=== PATIENT | female | born 1945 | race Caucasian/White ===

== ENCOUNTER → 2023-09-21 06:29 | Day surgery (SDC) | payer MEDICARE, OTHER, SELFPAY | LOC: GI 06:29 | PROVIDERS: ATTENDING PHYSICIAN Specialist | DX: C18.1 Malignant neoplasm of appendix (principal); D12.3 Benign neoplasm of transverse colon; D12.8 Benign neoplasm of rectum; Z08 Encounter for follow-up examination after completed treatment for malignant neoplasm; Z85.09 Personal history of malignant neoplasm of other digestive organs | CPT/HCPCS: 45385; 45380; 88305 ==

== ENCOUNTER → 2024-01-03 12:19 | Outpatient (REF) | payer MEDICARE, OTHER, SELFPAY | LOC: WDC 12:19 | PROVIDERS: ATTENDING PHYSICIAN Obstetrics & Gynecology Gynecology; FAMILY PHYSICIAN Physician Assistant | DX: Z12.31 Encounter for screening mammogram for malignant neoplasm of breast (principal) | CPT/HCPCS: 77063; 77067 ==

== ENCOUNTER → 2024-04-29 16:57 | Outpatient (REF) | payer MEDICARE, OTHER, SELFPAY | LOC: PAVMRI 16:57 | PROVIDERS: ATTENDING PHYSICIAN Physician Assistant Surgical; FAMILY PHYSICIAN Physician Assistant | DX: M79.671 Pain in right foot (principal) | CPT/HCPCS: 73718 ==

== ENCOUNTER → 2024-05-29 12:10 | Outpatient (REF) | payer MEDICARE, OTHER, SELFPAY | LOC: RCS 12:10 | PROVIDERS: ATTENDING PHYSICIAN Internal Medicine Cardiovascular Disease; FAMILY PHYSICIAN Physician Assistant | DX: I10 Essential (primary) hypertension (principal); I42.2 Other hypertrophic cardiomyopathy | CPT/HCPCS: 93306 ==

== ENCOUNTER → 2024-06-19 07:02 | Outpatient (REF) | payer MEDICARE, OTHER, SELFPAY ==
[2024-06-19 08:08] LABS: Blood Urea Nitrogen 21 mg/dl (7-17)
[2024-06-19 16:11] LABS: CEA 2.63 ng/ml
[2024-06-19 19:04] LABS: CA 125 8.3 U/mL (0-35)
[2024-06-20 10:18] LABS: CA 19-9 6 U/mL (<=35)
== END ==
LOC: REG 07:02
PROVIDERS: ATTENDING PHYSICIAN Surgery; FAMILY PHYSICIAN Physician Assistant
DX: D37.3 Neoplasm of uncertain behavior of appendix (principal); Z01.812 Encounter for preprocedural laboratory examination; R97.8 Other abnormal tumor markers
CPT/HCPCS: 36415; 82378; 82565; 84520; 86301; 86304

== ENCOUNTER → 2024-06-23 10:20 | Outpatient (REF) | payer MEDICARE, OTHER, SELFPAY ==
[2024-06-23 11:05] LABS: % Basophils 0.3 % (0-2); % Immature Granulocytes 0.1 % (0-0.5); % Lymphocytes 9.4 % (20.5-51.1); % Neutrophils 77.2 % (42.2-75.2); Absolute Lymphocytes 0.6 10^3/uL (1.2-3.4); Absolute Monocytes 0.9 10^3/uL (0.1-0.6); Absolute Neutrophils 5.3 10^3/uL (1.4-6.5); Hematocrit 42.9 % (37.0-47.0); Hemoglobin 13.8 g/dL (12.0-16.0); Mean Corp Hgb Conc. 32.2 g/dL (33.0-37.0); Mean Corpuscular Hgb 28.3 pg (27.0-31.0); Mean Corpuscular Volume 87.9 fL (81.0-99.0); Mean Platelet Volume 11.3 fL (7.4-10.4); Nucleated Red Blood Cells % 0 %; Platelet Count 161 10^3/uL (130-400); Red Blood Cell Count 4.88 10^6/uL (4.20-5.40); Red Cell Dist. Width 13.6 % (11.5-14.5); White Blood Cell Count 6.8 10^3/uL (4.8-10.8)
[2024-06-23 11:58] LABS: ALT (SGPT) 51 U/L (0-35); AST (SGOT) 59 U/L (14-36); Albumin 4.4 g/dl (3.5-5.0); Alkaline Phosphatase 95 U/L (38-126); Blood Urea Nitrogen 14 mg/dl (7-17); Calcium 9.3 mg/dl (8.4-10.2); Carbon Dioxide 32 mmol/L (22-30); Chloride 95 mmol/L (98-107); Glucose 96 mg/dl (70-99); HDL Cholesterol 77 mg/dl; LDL Cholesterol, Calculated 92 mg/dl; Potassium 4.9 mmol/L (3.5-5.1); Sodium 133 mmol/L (135-145); Total Bilirubin 0.6 mg/dl (0.2-1.3); Total Cholesterol 179 mg/dl (50-199); Total Protein 6.9 g/dl (6.3-8.2); Triglyceride 51 mg/dl (10-149); Very Low Density Lipoprotein 10 mg/dl (0-30); eGFR 58.02
[2024-06-23 12:14] LABS: Free T4 0.78 ng/dl (0.78-2.19)
== END ==
LOC: REG 10:20
PROVIDERS: ATTENDING PHYSICIAN Physician Assistant
DX: I10 Essential (primary) hypertension (principal); E03.9 Hypothyroidism, unspecified; E11.9 Type 2 diabetes mellitus without complications; E66.9 Obesity, unspecified; J45.20 Mild intermittent asthma, uncomplicated; G47.33 Obstructive sleep apnea (adult) (pediatric); Z13.220 Encounter for screening for lipoid disorders
CPT/HCPCS: 36415; 80053; 80061; 83036; 84439; 84443; 85025

== ENCOUNTER → 2024-07-10 12:11 | Outpatient (REF) | payer MEDICARE, OTHER, SELFPAY | LOC: RAD 12:11 | PROVIDERS: ATTENDING PHYSICIAN Surgery; FAMILY PHYSICIAN Physician Assistant | DX: D37.3 Neoplasm of uncertain behavior of appendix (principal) | CPT/HCPCS: 74177; Q9967 ==

== ENCOUNTER 2024-07-14 06:21 | Day surgery (SDC) | payer MEDICARE, OTHER, SELFPAY ==
[2024-07-14 07:22] VITALS: BMI 29.7
[2024-07-14 07:28] VITALS: BMI 29.7
--- NOTE | 2024-07-14 07:30 | PTCARENOTE ---
Patient states that she was diagnosed with sleep apnea with a home study. Patient states she does not have sleep apnea though and had a sleep apnea device and it was stopped against medical advice. No sleep apnea reported per patient.
[2024-07-14 07:46] VITALS: BP 162/84
[2024-07-14] MEDS: TYLENOL 1000 MG PO (07:51)
[2024-07-14] MEDS: CELEBREX 200 MG PO (07:51)
[2024-07-14] MEDS: NORMOSOL-R/PLASMALYTE-A 1000 IV (08:08)
[2024-07-14 10:20] VITALS: BP 117/78
[2024-07-14 10:30] VITALS: BP 145/86
[2024-07-14 10:45] VITALS: BP 150/81
[2024-07-14 11:00] VITALS: BP 145/81
== END 2024-07-14 11:18 | disposition home or self-care (01) ==
LOC: SDS 06:21
PROVIDERS: ATTENDING PHYSICIAN Student in an Organized Health Care Education/Training Program; FAMILY PHYSICIAN Physician Assistant
DX: M20.21 Hallux rigidus, right foot (principal)
CPT/HCPCS: 28750; C1713; C1776

== ENCOUNTER → 2024-08-26 09:06 | Outpatient (REF) | payer MEDICARE, OTHER, SELFPAY ==
[2024-08-26 13:41] LABS: ALT (SGPT) 46 U/L (0-35); AST (SGOT) 38 U/L (14-36); Albumin 4.3 g/dl (3.5-5.0); Alkaline Phosphatase 101 U/L (38-126); Direct Bilirubin 0.1 mg/dl (0.0-0.4); Iron 74 ug/dl (37-170); Total Bilirubin 0.5 mg/dl (0.2-1.3); Total Protein 6.7 g/dl (6.3-8.2)
[2024-08-26 13:50] LABS: Percent Saturation 20 % (20-50); Total Iron Binding Capacity 360 ug/dl (265-497)
[2024-08-26 14:13] LABS: Ferritin 89.8 ng/ml (11.1-264.0)
[2024-08-28 19:14] LABS: ANA, IgG Reflex to HEp-2 None Detected (None Detected)
[2024-08-28 21:07] LABS: F-Actin Antibody IgG 10 Units (0-19); Mitochondrial M2 Ab, IgG 2.3 Units (0.0-24.9)
[2024-08-28 21:24] LABS: Ceruloplasmin 28 mg/dL (16-45)
== END ==
LOC: HWRAD 09:06
PROVIDERS: ATTENDING PHYSICIAN Specialist; FAMILY PHYSICIAN Physician Assistant
DX: R79.89 Other specified abnormal findings of blood chemistry (principal)
CPT/HCPCS: 36415; 76700; 80076; 82390; 82728; 83540; 83550; 86015; 86038; 86381

== ENCOUNTER → 2024-09-24 08:27 | Outpatient (REF) | payer MEDICARE, OTHER, SELFPAY | LOC: HWRCS 08:27 | PROVIDERS: ATTENDING PHYSICIAN Physician Assistant Medical; FAMILY PHYSICIAN Physician Assistant | DX: I44.7 Left bundle-branch block, unspecified (principal); R06.09 Other forms of dyspnea; R42 Dizziness and giddiness | CPT/HCPCS: 78452; 93017; A9500; J2785 ==

== ENCOUNTER → 2025-01-13 12:38 | Outpatient (REF) | payer MEDICARE, OTHER, SELFPAY | LOC: RSP 12:38 | PROVIDERS: ATTENDING PHYSICIAN Physician Assistant | DX: R06.09 Other forms of dyspnea (principal) | CPT/HCPCS: 94060 ==

== ENCOUNTER → 2025-02-11 14:19 | Outpatient (REF) | payer MEDICARE, OTHER, SELFPAY ==
[2025-02-11 16:13] LABS: Hematocrit 44.1 % (37.0-47.0); Hemoglobin 13.9 g/dL (12.0-16.0); Mean Corp Hgb Conc. 31.5 g/dL (33.0-37.0); Mean Corpuscular Volume 87.8 fL (81.0-99.0); Nucleated Red Blood Cells % 0 %; Platelet Count 199 10^3/uL (130-400); Red Cell Dist. Width 13.7 % (11.5-14.5)
== END ==
LOC: REG 14:19
PROVIDERS: ATTENDING PHYSICIAN Nurse Practitioner Family; FAMILY PHYSICIAN Physician Assistant
DX: R06.02 Shortness of breath (principal)
CPT/HCPCS: 36415; 85025

== ENCOUNTER → 2025-02-17 07:14 | Outpatient (REF) | payer MEDICARE, OTHER, SELFPAY | LOC: RCS 07:14 | PROVIDERS: ATTENDING PHYSICIAN Internal Medicine Cardiovascular Disease; FAMILY PHYSICIAN Physician Assistant | DX: I10 Essential (primary) hypertension (principal); I36.1 Nonrheumatic tricuspid (valve) insufficiency; I44.7 Left bundle-branch block, unspecified; I34.2 Nonrheumatic mitral (valve) stenosis | CPT/HCPCS: 93306 ==

== ENCOUNTER → 2025-04-02 12:22 | Outpatient (REF) | payer MEDICARE, OTHER, SELFPAY | LOC: RAD 12:22 | PROVIDERS: ATTENDING PHYSICIAN Nurse Practitioner Family; FAMILY PHYSICIAN Physician Assistant | DX: R60.0 Localized edema (principal) | CPT/HCPCS: 71046; 93971 ==

== ENCOUNTER → 2025-04-22 08:39 | Outpatient (REF) | payer MEDICARE, OTHER, SELFPAY ==
[2025-04-22 09:44] LABS: Hematocrit 45.3 % (37.0-47.0); Hemoglobin 14.1 g/dL (12.0-16.0); Mean Corp Hgb Conc. 31.1 g/dL (33.0-37.0); Mean Corpuscular Volume 89.5 fL (81.0-99.0); Nucleated Red Blood Cells % 0 %; Platelet Count 169 10^3/uL (130-400); Red Cell Dist. Width 13.6 % (11.5-14.5)
[2025-04-22 11:38] LABS: ALT (SGPT) 124 U/L (0-35); AST (SGOT) 100 U/L (14-36); Albumin 4.4 g/dl (3.5-5.0); Alkaline Phosphatase 131 U/L (38-126); Blood Urea Nitrogen 24 mg/dl (7-17); Calcium 9.5 mg/dl (8.4-10.2); Carbon Dioxide 25 mmol/L (22-30); Chloride 105 mmol/L (98-107); Glucose 108 mg/dl (70-99); Potassium 4.4 mmol/L (3.5-5.1); Sodium 138 mmol/L (135-145); Total Protein 6.8 g/dl (6.3-8.2); eGFR > 60.00
== END ==
LOC: REG 08:39
PROVIDERS: ATTENDING PHYSICIAN Specialist; FAMILY PHYSICIAN Physician Assistant
DX: R79.89 Other specified abnormal findings of blood chemistry (principal)
CPT/HCPCS: 36415; 80053; 85025

== ENCOUNTER → 2025-05-05 17:36 | Outpatient (REF) | payer MEDICARE, OTHER, SELFPAY | LOC: MRI 17:36 | PROVIDERS: ATTENDING PHYSICIAN Specialist; FAMILY PHYSICIAN Physician Assistant | DX: R79.89 Other specified abnormal findings of blood chemistry (principal) | CPT/HCPCS: 74183; A9575 ==

== ENCOUNTER 2025-05-07 09:31 | Day surgery (SDC) | payer MEDICARE, OTHER, SELFPAY ==
[2025-05-07 10:47] VITALS: BMI 29.5
== END 2025-05-07 12:23 | disposition home or self-care (01) ==
LOC: CATH 09:31
PROVIDERS: ATTENDING PHYSICIAN Internal Medicine Cardiovascular Disease; FAMILY PHYSICIAN Physician Assistant; OTHER PHYSICIAN Internal Medicine Cardiovascular Disease
DX: I08.0 Rheumatic disorders of both mitral and aortic valves (principal); I70.0 Atherosclerosis of aorta; I08.3 Combined rheumatic disorders of mitral, aortic and tricuspid valves; I42.2 Other hypertrophic cardiomyopathy; I50.32 Chronic diastolic (congestive) heart failure; I44.0 Atrioventricular block, first degree; Z79.899 Other long term (current) drug therapy; I10 Essential (primary) hypertension; I42.1 Obstructive hypertrophic cardiomyopathy; G47.33 Obstructive sleep apnea (adult) (pediatric)
CPT/HCPCS: 93312; 93320; 93325

== ENCOUNTER → 2025-05-11 12:09 | Outpatient (REF) | payer MEDICARE, OTHER, SELFPAY ==
[2025-05-11 13:25] LABS: Troponin I 0.018 ng/ml
[2025-05-11 13:34] LABS: ALT (SGPT) 70 U/L (0-35); AST (SGOT) 49 U/L (14-36); Albumin 4.6 g/dl (3.5-5.0); Alkaline Phosphatase 110 U/L (38-126); Total Protein 7.1 g/dl (6.3-8.2)
== END ==
LOC: REG 12:09
PROVIDERS: ATTENDING PHYSICIAN Internal Medicine Cardiovascular Disease; FAMILY PHYSICIAN Physician Assistant; OTHER PHYSICIAN Specialist
DX: I42.2 Other hypertrophic cardiomyopathy (principal); I05.0 Rheumatic mitral stenosis; R79.89 Other specified abnormal findings of blood chemistry
CPT/HCPCS: 36415; 80076; 83880; 84484

== ENCOUNTER 2025-06-05 10:19 | Day surgery (SDC) | payer MEDICARE, OTHER, SELFPAY ==
[2025-06-05] VITALS (17 sets, daily range): BP systolic 107–183; BP diastolic 69–90
[2025-06-05 10:55] LABS: Hematocrit 44.8 % (37.0-47.0); Hemoglobin 14.2 g/dL (12.0-16.0); Mean Corp Hgb Conc. 31.7 g/dL (33.0-37.0); Mean Corpuscular Volume 87.5 fL (81.0-99.0); Platelet Count 176 10^3/uL (130-400); Red Cell Dist. Width 13.6 % (11.5-14.5)
[2025-06-05 11:05] LABS: Blood Urea Nitrogen 22 mg/dl (7-17); Calcium 10.0 mg/dl (8.4-10.2); Carbon Dioxide 26 mmol/L (22-30); Chloride 104 mmol/L (98-107); Glucose 93 mg/dl (70-99); Potassium 4.9 mmol/L (3.5-5.1); Sodium 137 mmol/L (135-145); eGFR 57.66
[2025-06-05] MEDS: LOW STRENGTH ASPIRIN 324 MG PO (11:20)
[2025-06-05] MEDS: NSS 1000 IV (15:20)
--- NOTE | 2025-06-05 16:04 | ITS.CL.CATH ---
Chief Writer - Catheterization
Cardiac Catheterization
Procedure Report:
RIGHT AND LEFT HEART STUDY
Date of Procedure: June 05, 2025
Referring: Dr. Evangelina Gruber
PROCEDURES:
1. Right heart catheterization
2. Left heart catheterization with coronary and single-plane left ventriculography
INDICATION: Exertional dyspnea with mitral stenosis secondary to heavy mitral annular calcification and leaflet thickening and aortic stenosis
ACCESS: Right radial artery, 6 Georgian sheath and right common femoral vein, 6 Georgian sheath. Ultrasound guidance was utilized for vascular access
HEMODYNAMICS : mmHg
RA (m) : 10
RV (s/d) : 42/4, 12
PA (s/d, m) : 38/16, 25
PCWP (m) : 19
AO (s/d, m) : 156/78, 108
LV (s/d) : 169/9
LVEDP : 18
Estimated Myriam Cardiac Output: 3.0 L / min and Cardiac Index: 1.6 L/ min / m-2
Systemic vascular resistance: 32.6 Wood units or 2613 [id number](-5)
Pulmonary vascular resistance: 2 Wood units or 160 [id number](-5)
AORTIC VALVE:
Mean Gradient: 21-24 mmHg
Aortic Valve Area: 0.96 - 1.0 cm2
MITRAL VALVE: Significant ectopy throughout the procedure
Mean Gradient: 6.8-8.2 mmHg
Mitral Valve Area: 0.7-0.8 cm2
CORONARY FINDINGS :
Dominance: Right
LEFT MAIN: Normal
LEFT ANTERIOR DESCENDING: The LAD arises normally from the left main running in the anterior interventricular groove. The LAD supplies a sizable diagonal branch in the mid vessel. The LAD and diagonal branches are of similar size supplying a
similar vascular territory. The LAD and diagonal branches are normal.
CIRCUMFLEX: The circumflex is a moderate caliber nondominant vessel supplying a single sizable obtuse marginal branch. The circumflex and obtuse marginal branch are widely patent but somewhat tortuous in the course
RIGHT CORONARY ARTERY: The right coronary artery is a large-caliber dominant vessel that is widely patent over its course
VENTRICULOGRAPHY: Left ventriculography was performed in an LIZ projection. The digital single-plane left ventricular ejection fraction is estimated greater than 70% and no regional wall motion abnormalities are noted. Heavy mitral annular
calcification is noted with no significant mitral regurgitation.
SEDATION: 72 minutes of procedural sedation was utilized. An independent medical transport specialist was present to assist with and help manage the patient's level of consciousness and physiologic status
RADIATION SUMMARY: Fluoro Time (min): 8.1, Dose (mGy): 253, DAP (Gy.cm2) : 21.6
CONCLUSIONS
1. Moderate aortic stenosis
2. Probable severe mitral stenosis with a mean gradient measuring between 6.8 and 8.2 mmHg. Accurate assessment of mitral gradients is difficult due to significant ectopy.
3. Preserved LV systolic function
4. Nonobstructive coronary artery disease
RECOMMENDATIONS
1. Follow-up is been arranged with Dr. Puri on 06/08/2025
Copy to: Dr. Evangelina Gruber
== END 2025-06-05 18:44 | disposition home or self-care (01) ==
LOC: CATH 10:19
PROVIDERS: ATTENDING PHYSICIAN Internal Medicine Interventional Cardiology; FAMILY PHYSICIAN Physician Assistant; OTHER PHYSICIAN Internal Medicine Cardiovascular Disease
DX: I08.0 Rheumatic disorders of both mitral and aortic valves (principal); R06.09 Other forms of dyspnea; I42.1 Obstructive hypertrophic cardiomyopathy; I25.10 Atherosclerotic heart disease of native coronary artery without angina pectoris; I44.0 Atrioventricular block, first degree; I50.32 Chronic diastolic (congestive) heart failure; I11.0 Hypertensive heart disease with heart failure; Z79.899 Other long term (current) drug therapy
CPT/HCPCS: 99152; 99153; 80048; 85027; 93460; C1769; C1894; Q9967

== ENCOUNTER → 2025-06-08 12:15 | Outpatient (REF) | payer MEDICARE, OTHER, SELFPAY ==
[2025-06-08 14:11] LABS: ALT (SGPT) 97 U/L (0-35); AST (SGOT) 77 U/L (14-36); Albumin 4.4 g/dl (3.5-5.0); Alkaline Phosphatase 101 U/L (38-126); Total Protein 6.6 g/dl (6.3-8.2)
== END ==
LOC: REG 12:15
PROVIDERS: ATTENDING PHYSICIAN Specialist; FAMILY PHYSICIAN Physician Assistant
DX: R79.89 Other specified abnormal findings of blood chemistry (principal)
CPT/HCPCS: 36415; 80076